=== PATIENT | female | born 1985 ===

== ENCOUNTER → 2023-01-11 09:31 | Outpatient (CLI) | payer OTHER, SELFPAY ==
--- NOTE | ~2023-01-11 | MR_ITS ---
EXAMINATION: MR pituitary wo/w con DATE: 01/11/2023 10:35 INDICATION: Hyperprolactinemia. TECHNIQUE: Magnetic resonance imaging (MRI) of the brain and brainstem was performed without and with 13 mL MultiHance intravenous contrast. COMPARISON: None. FINDINGS: The pituitary is normal in size with height of 4 mm and concave superior margin. The infund ibulum is at the midline. There is no intracranial hemorrhage, acute infarction, or abnormal intracra nial mass lesion. The ventricles are normal in size. There is a mucous retention cyst in left maxilla ry sinus. There is mild mucosal thickening in the ethmoid sinuses. The orbits are normal. The mastoid air cells are normal. The internal auditory canals and inner and middle ears are normal. IMPRESSION: 1. Normal brain. Normal pituitary. Reviewed, dictated and finalized at location A.
== END ==
PROVIDERS: PCP Otolaryngology; Visit Provider Internal Medicine Endocrinology, Diabetes & Metabolism
DX: E22.1 Hyperprolactinemia (principal)
CPT/HCPCS: 70553; A9577